=== PATIENT | male | born 1985 | race Caucasian/White ===

== ENCOUNTER 2017-10-09 05:27 | Emergency (ER) | payer BC ==
[~2017-10-09] VITALS: Ht 172.7 cm; Wt 100.0 kg
[~2017-10-09 05:27] MED LIST: ALBUTEROL S2.5 MG/.5 IN; DOXY-CAPS100 MG PO
[2017-10-09] MEDS ORDERED: ALLERGY EYE DRO1 DRO OD (06:10)
[2017-10-09 06:20] VITALS: BP 168/104
== END 2017-10-09 06:25 | disposition home or self-care (01) | DRG 125 ==
LOC: ED 05:27
DX: H10.89 Other conjunctivitis (principal); F17.290 Nicotine dependence, other tobacco product, uncomplicated; J45.909 Unspecified asthma, uncomplicated

== ENCOUNTER 2019-04-24 11:45 | Emergency (ER) | payer OTHER, BC ==
[~2019-04-24] VITALS: Ht 172.7 cm; Wt 125.0 kg
[~2019-04-24 11:45] MED LIST changes: +ALLERGY EYE DRO1 DRO OD
[2019-04-24 12:16] LABS: HEMATOCRIT 43.6 % (39.0-50.0); HEMOGLOBIN 14.3 g/dl (14.0-18.0); IMMATURE GRANULOCYTES 0.5 % (0.0-5.0); MEAN CELL VOLUME 92.4 fL CALC (80.0-100.0); MEAN CORPUSCULAR HGB 30.3 pG CALC (26.0-32.0); MEAN CORPUSCULAR HGB CONC 32.8 g/L CALC (32.0-36.0); NEUT# 5.8 thou/uL (1.82-7.42); RED BLOOD COUNT 4.72 mill/uL (4.70-6.10); RED CELL DISTRI WIDTH 11.4 % (11.5-15.5)
[2019-04-24] MEDS ORDERED: LIPITOR20 M1 PO (12:24)
[2019-04-24] MEDS ORDERED: PROAIR HFA108 MCG/AC IN (12:24)
[2019-04-24] MEDS ORDERED: RANITIDINE150 MG PO (12:25)
[2019-04-24] MEDS ORDERED: LISINOPRIL20 MG PO (12:25)
[2019-04-24 12:32] LABS: ALBUMIN 4.6 g/dL (3.2-5.0); ALKALINE PHOSPHATASE 73 u/l (38-126); ANION GAP 15 (6-22 (CALC)); BUN 22 mg/dL (9-20); BUN/CREATININE RATIO 18 (12-20 (CALC)); CARBON DIOXIDE 27 mmol/l (22-30); CHLORIDE 102 mmol/l (95-108); CREATININE 1.2 mg/dL (0.7-1.3); GFR > 60 ML/MIN (>=60 (CALC)); GFR FOR AFR.AMER. > 60 ML/MIN (>=60 (CALC)); POTASSIUM 4.1 mmol/l (3.5-5.1); SGOT/AST 39 u/l (17-59); SODIUM 140 mmol/l (137-146); TOTAL PROTEIN 7.8 g/dL (6.3-8.2)
[2019-04-24 12:56] LABS: BILIRUBIN, TOTAL 0.7 mg/dL (0.0-1.4)
[2019-04-24 13:20] LABS: MYOGLOBIN 108 ng/mL (0 - 121)
[2019-04-24 13:46] VITALS: BP 140/86
== END 2019-04-24 13:45 | disposition home or self-care (01) | DRG 880 ==
LOC: ED 11:45
PROVIDERS: Emergency Medicine
DX: F41.9 Anxiety disorder, unspecified (principal); I10 Essential (primary) hypertension

== ENCOUNTER 2020-04-21 11:52 | Emergency (ER) | payer BC ==
[~2020-04-21] VITALS: Ht 172.7 cm; Wt 125.0 kg
[~2020-04-21 11:52] MED LIST changes: +LIPITOR20 M1 PO; +LISINOPRIL20 MG PO; +PROAIR HFA108 MCG/AC IN; +RANITIDINE150 MG PO
[2020-04-21] MEDS ORDERED: [UNRECOGNIZED DRUG - OTHER] PO (12:49)
[2020-04-21] MEDS ORDERED: MAGNESIUM500 M1 PO (12:50)
[2020-04-21 13:02] LABS: HEMATOCRIT 44.4 % (39.0-50.0); HEMOGLOBIN 14.8 g/dl (14.0-18.0); IMMATURE GRANULOCYTES 0.4 % (0.0-5.0); MEAN CELL VOLUME 93.1 fL CALC (80.0-100.0); MEAN CORPUSCULAR HGB CONC 33.3 g/dL CAL (32.0-36.0); NEUT# 2.9 thou/uL (1.82-7.42); RED BLOOD COUNT 4.77 mill/uL (4.70-6.10); RED CELL DISTRI WIDTH 11.7 % (11.5-15.5)
[2020-04-21 13:02] LABS: URINE BILIRUBIN - DIPSTICK NEGATIVE (NEGATIVE); URINE BLOOD DIPSTICK NEGATIVE (NEGATIVE); URINE COLOR YELLOW; URINE GLUCOSE - DIPSTICK NEGATIVE (NEGATIVE); URINE KETONE NEGATIVE (NEGATIVE); URINE LEUK ESTERASE NEGATIVE (NEGATIVE); URINE NITRITE - DIPSTICK NEGATIVE (Negative); URINE PH 5.5 (4.5-8.0); URINE PROTEIN - DIPSTICK NEGATIVE (NEG-TRACE); URINE SPECIFIC GRAVITY >=1.030; URINE UROBILINOGEN - DIPSTICK 0.2 E.U./dL (0.2)
[2020-04-21 13:18] LABS: ALBUMIN 4.6 g/dL (3.2-5.0); ALKALINE PHOSPHATASE 73 u/l (38-126); ANION GAP 10 (6-22 (CALC)); BILIRUBIN, TOTAL 0.9 mg/dL (0.0-1.4); BUN 19 mg/dL (9-20); BUN/CREATININE RATIO 15 (12-20 (CALC)); CARBON DIOXIDE 28 mmol/l (22-30); CHLORIDE 105 mmol/l (95-108); CREATININE 1.2 mg/dL (0.7-1.3); GFR > 60 ML/MIN (>=60 (CALC)); GFR FOR AFR.AMER. > 60 ML/MIN (>=60 (CALC)); LIPASE 57 u/l (23-300); POTASSIUM 4.5 mmol/l (3.5-5.1); SGOT/AST 40 u/l (17-59); SODIUM 138 mmol/l (137-146); TOTAL PROTEIN 7.5 g/dL (6.3-8.2)
[2020-04-21] MEDS ORDERED: PROTONIX40 M2 PO (15:27)
[2020-04-21 16:35] VITALS: BP 160/90
== END 2020-04-21 16:06 | disposition home or self-care (01) | DRG 392 ==
LOC: ED 11:52
DX: K29.70 Gastritis, unspecified, without bleeding (principal); I10 Essential (primary) hypertension
CPT/HCPCS: Q9967; S0164

== ENCOUNTER 2021-02-08 | Emergency (ER) | payer BC ==
[~2021-02-08] MED LIST changes: +MAGNESIUM500 M1 PO; +PROTONIX40 M2 PO; +[UNRECOGNIZED DRUG - OTHER] PO
[2021-02-08 19:42] LABS: HEMATOCRIT 45.5 % (39.0-50.0); HEMOGLOBIN 15.1 g/dl (14.0-18.0); IMMATURE GRANULOCYTES 0.3 % (0.0-5.0); MEAN CELL VOLUME 92.7 fL CALC (80.0-100.0); MEAN CORPUSCULAR HGB 30.8 pG CALC (26.0-32.0); MEAN CORPUSCULAR HGB CONC 33.2 g/dL CAL (32.0-36.0); NEUT# 6.58 thou/uL (1.82-7.42); RED BLOOD COUNT 4.91 mill/uL (4.70-6.10); RED CELL DISTRI WIDTH 11.4 % (11.5-15.5)
[2021-02-08 19:43] LABS: URINE BLOOD DIPSTICK NEGATIVE (NEGATIVE); URINE COLOR YELLOW; URINE GLUCOSE - DIPSTICK NEGATIVE (NEGATIVE); URINE KETONE NEGATIVE (NEGATIVE); URINE LEUK ESTERASE NEGATIVE (NEGATIVE); URINE PH 5.5 (4.5-8.0); URINE PROTEIN - DIPSTICK NEGATIVE (NEG-TRACE); URINE SPECIFIC GRAVITY >=1.030; URINE UROBILINOGEN - DIPSTICK 0.2 E.U./dL (0.2)
[2021-02-08 19:44] LABS: URINE BILIRUBIN - DIPSTICK SMALL (NEGATIVE); URINE NITRITE - DIPSTICK NEGATIVE (Negative)
[2021-02-08 19:55] LABS: ALBUMIN 4.8 g/dL (3.2-5.0); ALKALINE PHOSPHATASE 71 u/l (38-126); ANION GAP 16 (6-22 (CALC)); BILIRUBIN, TOTAL 0.9 mg/dL (0.0-1.4); BUN 22 mg/dL (9-20); BUN/CREATININE RATIO 18 (12-20 (CALC)); CARBON DIOXIDE 25 mmol/l (22-30); CHLORIDE 101 mmol/l (95-108); CREATININE 1.2 mg/dL (0.7-1.3); GFR > 60 ML/MIN (>=60 (CALC)); GFR FOR AFR.AMER. > 60 ML/MIN (>=60 (CALC)); POTASSIUM 4.5 mmol/l (3.5-5.1); SGOT/AST 43 u/l (17-59); SODIUM 137 mmol/l (137-146)
== END 2021-02-08 22:15 | disposition home or self-care (01) | DRG 305 ==
PROVIDERS: Emergency Medicine
DX: I10 Essential (primary) hypertension (principal); F17.200 Nicotine dependence, unspecified, uncomplicated

== ENCOUNTER 2021-02-10 | Emergency (ER) | payer BC ==
[2021-02-10] MEDS ORDERED: MAGNESIUM500 M1 PO (14:56)
[2021-02-10 15:01] LABS: HEMOGLOBIN 15.5 g/dl (14.0-18.0); IMMATURE GRANULOCYTES 0.6 % (0.0-5.0); MEAN CELL VOLUME 93.3 fL CALC (80.0-100.0); MEAN CORPUSCULAR HGB 30.8 pG CALC (26.0-32.0); NEUT# 5.3 thou/uL (1.82-7.42); RED BLOOD COUNT 5.04 mill/uL (4.70-6.10); RED CELL DISTRI WIDTH 11.5 % (11.5-15.5)
[2021-02-10 15:12] LABS: ALKALINE PHOSPHATASE 74 u/l (38-126); ANION GAP 13 (6-22 (CALC)); BILIRUBIN, TOTAL 0.7 mg/dL (0.0-1.4); BUN 21 mg/dL (9-20); BUN/CREATININE RATIO 17 (12-20 (CALC)); CARBON DIOXIDE 28 mmol/l (22-30); CHLORIDE 101 mmol/l (95-108); CREATININE 1.2 mg/dL (0.7-1.3); GFR > 60 ML/MIN (>=60 (CALC)); GFR FOR AFR.AMER. > 60 ML/MIN (>=60 (CALC)); POTASSIUM 4.7 mmol/l (3.5-5.1); SGOT/AST 46 u/l (17-59); SODIUM 137 mmol/l (137-146); TOTAL PROTEIN 8.3 g/dL (6.3-8.2)
[2021-02-10 15:43] LABS: TSH, 3RD GENERATION 1.89 uIU/mL (0.47 - 4.68)
[2021-02-10 15:45] LABS: URINE BILIRUBIN - DIPSTICK NEGATIVE (NEGATIVE); URINE BLOOD DIPSTICK NEGATIVE (NEGATIVE); URINE COLOR YELLOW; URINE GLUCOSE - DIPSTICK NEGATIVE (NEGATIVE); URINE KETONE NEGATIVE (NEGATIVE); URINE LEUK ESTERASE NEGATIVE (NEGATIVE); URINE PROTEIN - DIPSTICK NEGATIVE (NEG-TRACE); URINE SPECIFIC GRAVITY >=1.030; URINE UROBILINOGEN - DIPSTICK 0.2 E.U./dL (0.2)
[2021-02-10 15:46] LABS: URINE NITRITE - DIPSTICK NEGATIVE (Negative)
[2021-02-10] MEDS ORDERED: LOPRESSOR25 M1 PO (16:06)
== END 2021-02-10 16:25 | disposition home or self-care (01) | DRG 305 ==
PROVIDERS: Emergency Medicine
DX: I10 Essential (primary) hypertension (principal); J45.909 Unspecified asthma, uncomplicated; F17.200 Nicotine dependence, unspecified, uncomplicated

== ENCOUNTER 2021-06-10 18:56 | Emergency (ER) | payer BC ==
[~2021-06-10 18:56] MED LIST changes: +LOPRESSOR25 M1 PO
[2021-06-10 19:33] VITALS: BP 115/74
[2021-06-10] MEDS ORDERED: ZOFRAN4 MG/TAB PO (20:33)
== END 2021-06-10 20:40 | disposition home or self-care (01) | DRG 179 ==
LOC: ED 18:56
DX: U07.1 COVID-19 (principal); I10 Essential (primary) hypertension; J45.909 Unspecified asthma, uncomplicated; K21.9 Gastro-esophageal reflux disease without esophagitis; F17.200 Nicotine dependence, unspecified, uncomplicated

== ENCOUNTER 2021-06-16 10:41 | Inpatient (IN) | payer BC ==
[~2021-06-16] VITALS: Ht 172.7 cm; Wt 131.5 kg
[~2021-06-16 10:41] MED LIST changes: +ZOFRAN4 MG/TAB PO
--- NOTE | 2021-06-16 10:50 | NUR ---
TO ROOM FOR TRIAGE
--- NOTE | 2021-06-16 10:58 | NUR ---
POC DISCUSSED. CALL [place] IN REACH
[2021-06-16 11:26] LABS: GFR 53 ML/MIN (>=60 (CALC)); GFR FOR AFR.AMER. > 60 ML/MIN (>=60 (CALC))
[2021-06-16 11:30] LABS: HEMATOCRIT 41.1 % (39.0-50.0); HEMOGLOBIN 13.7 g/dl (14.0-18.0); IMMATURE GRANULOCYTES 0.5 % (0.0-5.0); MEAN CELL VOLUME 93.8 fL CALC (80.0-100.0); MEAN CORPUSCULAR HGB 31.3 pG CALC (26.0-32.0); MEAN CORPUSCULAR HGB CONC 33.3 g/dL CAL (32.0-36.0); NEUT# 6.51 thou/uL (1.82-7.42); RED BLOOD COUNT 4.38 mill/uL (4.70-6.10); RED CELL DISTRI WIDTH 11.3 % (11.5-15.5)
[2021-06-16 11:45] LABS: ALBUMIN 4.1 g/dL (3.2-5.0); ALKALINE PHOSPHATASE 55 u/l (38-126); ANION GAP 12 (6-22 (CALC)); BILIRUBIN, TOTAL 0.5 mg/dL (0.0-1.4); BUN 13 mg/dL (9-20); BUN/CREATININE RATIO 9 (12-20 (CALC)); CARBON DIOXIDE 29 mmol/l (22-30); CHLORIDE 96 mmol/l (95-108); CREATININE 1.5 mg/dL (0.7-1.3); GFR 53 ML/MIN (>=60 (CALC)); GFR FOR AFR.AMER. > 60 ML/MIN (>=60 (CALC)); SODIUM 133 mmol/l (137-146); TOTAL PROTEIN 7.7 g/dL (6.3-8.2)
[2021-06-16 11:51] LABS: SGOT/AST 86 u/l (17-59)
[2021-06-16 12:25] LABS: C-REACTIVE PROTEIN 15.6 mg/dL (0-0.9)
--- NOTE | 2021-06-16 12:26 | NUR ---
MD AT BEDSIDE TO DISCUSS RESULTS AND POC.
[2021-06-16 12:52] LABS: URINE BILIRUBIN - DIPSTICK NEGATIVE (NEGATIVE); URINE BLOOD DIPSTICK TRACE-INTACT (NEGATIVE); URINE COLOR YELLOW; URINE GLUCOSE - DIPSTICK NEGATIVE (NEGATIVE); URINE KETONE NEGATIVE (NEGATIVE); URINE LEUK ESTERASE NEGATIVE (NEGATIVE); URINE PROTEIN - DIPSTICK TRACE mg/dL (NEG-TRACE); URINE SPECIFIC GRAVITY <=1.005; URINE UROBILINOGEN - DIPSTICK 0.2 E.U./dL (0.2)
[2021-06-16 12:53] LABS: URINE NITRITE - DIPSTICK NEGATIVE (Negative)
--- NOTE | 2021-06-16 14:20 | NUR ---
REPORT CALLED TO OLAMIDE NARANJO.
--- NOTE | 2021-06-16 15:10 | NUR ---
TO MED SURG VIA WHEELCHAIR BY HELEN MEZA.
--- NOTE | 2021-06-16 15:15 | NUR ---
PT ARRIVED TO FLOOR VIA WHEELCHAIR ACCOMPAINED BY ER STAFF. PT ALERT AND ORIENTED X4. NO APPARENT DISTRESS NOTED. RESPIRATIONS EVEN AND UNLABORED. 02 @ 2L/M VIA NC. NONPRODUCTIVE COUGH NOTED. FULL STACK PYTHON DEVELOPER APPLIED. IV SITE APPEARS HEALTHY, FLUSHED WELL. IV FLUIDS INITIATED. PT ORIENTED TO ROOM AND CALL LIGHT SYSTEM. ADMISSION ASSESSMENT COMPLETE. PT DENIES ANY PAIN OR DISCOMFORT. NO CURRENT WANTS OR NEEDS. CALL LIGHT WITHIN REACH. WILL CONTINUE TO MONITOR.
[2021-06-16 15:50] VITALS: BP 108/71
[2021-06-16 19:00] VITALS: BP 131/79
--- NOTE | 2021-06-16 20:19 | NUR ---
PHYSICAL ASSESMENT COMPLETE. PT CURRENTLY DENIES PAIN OR DISCOMFORT. SCHEDULED MEDICATIONS AND PRN MEDICATION ADMINISTERED, SEE E-MAR. PT DENIES ANY NEEDS AT THIS TIME. PLAN OF CARE REVIEWED, PT DENIES QUESTIONS, VERBALIZES UNDERSTANDING. ITEMS WITHIN REACH, BED LOCKED IN LOW POSITION W/ BEDRAILS UP X2. CALL [place] WITHIN REACH, AGREES TO CALL PRN.
--- NOTE | 2021-06-16 23:55 | NUR ---
PT LAYING IN BED WITH EYES CLOSED, APPEARS TO BE SLEEPING, APPEARS COMFORTABLE AND IN NO DISTRESS. RESPIRATIONS REGULAR AND UNLABORED. ITEMS REMAIN WITHIN REACH, CALL [place] REMAINS WITHIN REACH. BED REMAINS LOCKED AND IN LOW POSITION WITH BEDRAILS UP X2. WILL CONTINUE TO MONITOR.
[2021-06-17] VITALS (7 sets, daily range): BP systolic 96–144; BP diastolic 55–103
--- NOTE | 2021-06-17 04:47 | NUR ---
PT RESTING IN BED, PT DIAPHORETIC AT THIS TIME. [id number]. PTS O2 SATURATION IS 92% ON 2 LITERS OF OXYGEN. RESP EVEN AND UNLABORED. PT VOICES NO NEEDS OR COMPLAINTS AT THIS TIME. CALL LIGHT IN REACH; WILL CONTINUE TO MONITOR.
[2021-06-17 06:04] LABS: HEMATOCRIT 42.2 % (39.0-50.0); HEMOGLOBIN 13.8 g/dl (14.0-18.0); IMMATURE GRANULOCYTES 0.3 % (0.0-5.0); MEAN CELL VOLUME 94.8 fL CALC (80.0-100.0); MEAN CORPUSCULAR HGB CONC 32.7 g/dL CAL (32.0-36.0); NEUT# 5.19 thou/uL (1.82-7.42); RED BLOOD COUNT 4.45 mill/uL (4.70-6.10); RED CELL DISTRI WIDTH 11.4 % (11.5-15.5)
[2021-06-17 06:22] LABS: ALBUMIN 3.8 g/dL (3.2-5.0); ALKALINE PHOSPHATASE 56 u/l (38-126); BILIRUBIN, TOTAL 0.3 mg/dL (0.0-1.4); BUN 16 mg/dL (9-20); BUN/CREATININE RATIO 15 (12-20 (CALC)); CARBON DIOXIDE 27 mmol/l (22-30); CHLORIDE 101 mmol/l (95-108); CREATININE 1.1 mg/dL (0.7-1.3); GFR > 60 ML/MIN (>=60 (CALC)); GFR FOR AFR.AMER. > 60 ML/MIN (>=60 (CALC)); SGOT/AST 79 u/l (17-59)
--- NOTE | 2021-06-17 06:50 | NUR ---
REPORT RECEIVED FROM TREY DERAS
[2021-06-17 07:02] LABS: ANION GAP 17 (6-22 (CALC)); C-REACTIVE PROTEIN 13.8 mg/dL (0-0.9); POTASSIUM 4.9 mmol/l (3.5-5.1); SODIUM 140 mmol/l (137-146)
--- NOTE | 2021-06-17 07:45 | NUR ---
PT RESTING IN SEMI FOWLERS POSITION,A&O X3;VS OBTAINED AND ASSESSMENT COMPLETED, CURRENT BP 144/103 HR 99. D.CARTEE ANRP NOTIFIED AND NEW ORDERS OBTAINED;PT DENIES ANY CURRENT PAIN OR DISCOMFORTS,PAIN SCALE AND REPORTING EDUCATED;RESPIRATIONS EVEN AND UNLABORED ON O2 @ 2L VIA NC, PT IS NOT HOME OXYGEN DEPENDENT;CLEAR/DIMINISHED LUNG SOUNDS WITH NON-PRODUCTIVE COUGH;I.S. PROVIDED AND PT EDUCATED ON USE,ENCOURAGED USE 10X PER HOUR;ABDOMEN SOFT ON PALPATION AND ACTIVE IN ALL 4 QUADRANTS;STRONG PEDAL PULSES;SKIN INTACT;TELE MONITORING IN PLACE;#20G TO LAC INFUSING NS @ 100ML/HR,SITE APPEARS HEALTHY;PT REMAINS IN AIR/CONTACT PRECAUTIONS DUE TO COVID19 DX;PT DENIES ANY ADDITIONAL NEEDS AND IS ENCOURAGED TO CALL FOR ASSISTANCE IF NEEDED;FALL PRECAUTIONS IN PLACE WITH BED IN THE LOWEST POSITION AND CALL LIGHT IN REACH;WILL CONTINUE TO MONITOR
--- NOTE | 2021-06-17 08:14 | NUR ---
Patient is screened for PT consult and no needs are identified at this time
--- NOTE | 2021-06-17 11:32 | NUR ---
AT BEDSIDE DISCUSSING POC WITH PT.
--- NOTE | 2021-06-17 11:35 | NUR ---
PT RESTING IN SEMI FOWLERS POSITION;RESPIRATIONS EVEN AND UNLABORED ON O2 @ 2L VIA NC;PT DENIES ANY CURRENT PAIN OR DISCOMFORTS;TELE MONITORING IN PLACE;IV SITE PATENT RUNNING NS WITH EASE;PT ENCOURAGED TO CALL FOR ASSISTANCE IF NEEDED;FALL PRECAUTIONS REMAIN IN PLACE WITH BED IN THE LOWEST POSITION AND CALL LIGHT IN REACH;WILL CONTINUE TO MONITOR
--- NOTE | 2021-06-17 12:34 | NUR ---
PT TO BE MEDICATED WITH PRN ROBITUSSIN AC PER REQUEST FOR COUGH AT THIS TIME,WILL CONTINUE TO MONITOR FOR EFFECTIVENESS
--- NOTE | 2021-06-17 16:30 | NUR ---
PT RESTING IN SEMI FOWLERS POSITION;RESPIRATIONS EVEN AND UNLABORED ON O2 @ 2L VIA NC;PT DENIES ANY CURRENT PAIN OR NEEDS;IV SITE PATENT INFUSING NS @ 100ML/HR,SITE APPEARS HEALTHY;PT ENOCURAGED TO CALL FOR ASSISTANCE IF NEEDED;CALL LIGHT IN REACH;WILL CONTINUE TO MONITOR
--- NOTE | 2021-06-17 20:56 | NUR ---
PT MEDICATED ORDERS PROVIDE AND ASSESSMENT COMPLETED AT THIS TIME. PT REPORTS FEELING MUCH BETTER. NO S/O DISTRESS NOTED AT THIS TIME. POC DISCUSSED AND PT ENCOUARGED TO CALL NEEDS ARISE. CALL LIGHT AT SIDE.
--- NOTE | 2021-06-18 00:10 | NUR ---
PT WAS SLEEPING I ENTERED THE ROOM. TEMP 97.8 AND OXYGEN SAT 95% SUSTAINING ON 2LNC AT THIS TIME. DENIES ANY OTHER NEEDS, CALL LIGHT IN HAND AND PT ENCOURAGED TO CALL ANY NEEDS ARISE.
--- NOTE | 2021-06-18 02:15 | NUR ---
Pt appears to be sleeping upright in high fowlers position. Lights are off and tv on. Resp appear regular non-labored. Call light w/in reach.
[2021-06-18 04:00] VITALS: BP 118/85
--- NOTE | 2021-06-18 05:24 | NUR ---
IVPUMP CLEARED AT THIS TIME. PT IS SLEEPING AGAIN, LAB AND V/S HAVE BEEN OBTAINED JUST PRIOR TO THIS TIME. NO S/O DISTRESS.
[2021-06-18 06:13] LABS: HEMATOCRIT 41.2 % (39.0-50.0); HEMOGLOBIN 13.1 g/dl (14.0-18.0); IMMATURE GRANULOCYTES 0.8 % (0.0-5.0); MEAN CELL VOLUME 97.2 fL CALC (80.0-100.0); MEAN CORPUSCULAR HGB 30.9 pG CALC (26.0-32.0); MEAN CORPUSCULAR HGB CONC 31.8 g/dL CAL (32.0-36.0); NEUT# 4.12 thou/uL (1.82-7.42); RED BLOOD COUNT 4.24 mill/uL (4.70-6.10); RED CELL DISTRI WIDTH 11.5 % (11.5-15.5)
[2021-06-18 06:19] LABS: ALBUMIN 3.5 g/dL (3.2-5.0); ALKALINE PHOSPHATASE 48 u/l (38-126); ANION GAP 13 (6-22 (CALC)); BILIRUBIN, TOTAL 0.2 mg/dL (0.0-1.4); BUN 21 mg/dL (9-20); BUN/CREATININE RATIO 18 (12-20 (CALC)); CARBON DIOXIDE 25 mmol/l (22-30); CHLORIDE 105 mmol/l (95-108); CREATININE 1.2 mg/dL (0.7-1.3); GFR > 60 ML/MIN (>=60 (CALC)); GFR FOR AFR.AMER. > 60 ML/MIN (>=60 (CALC)); POTASSIUM 4.6 mmol/l (3.5-5.1); SGOT/AST 59 u/l (17-59); SODIUM 139 mmol/l (137-146); TOTAL PROTEIN 6.5 g/dL (6.3-8.2)
--- NOTE | 2021-06-18 07:10 | NUR ---
REPORT RECEIVED FROM TREY CONNER
[2021-06-18 08:39] VITALS: BP 137/71
--- NOTE | 2021-06-18 08:40 | NUR ---
PT RESTING IN SEMI FOWLERS POSITION,A&O X3;VS OBTAINED AND ASSESSMENT COMPLETED;PT DENIES ANY CURRENT PAIN OR DISCOMFORTS,PAIN SCALE AND REPORTING EDUCATED;RESPIRATIONS EVEN AND UNLABORED ON O2 @ 2L VIA NC, O2 SATS 90% AT THIS TIME.OXYGEN INCREASED TO 3L VIA NC;CLEAR/DIMINISHED LUNG SOUNDS NOTED;NON-PRODUCTIVE COUGH AND PT MEDICATED WITH PRN ROBITUSSIN AC PER REQUEST;I.S. AT BEDSIDE AND PT DEMONSTRATED USE.ENCOURAGED USE 10X PER HOUR;ABDOMEN SOFT ON PALPATION AND ACTIVE IN ALL 4 QUADRANTS;STRONG PEDAL PULSES;SKIN INTACT;#20G TO LAC INFUSING NS @ 100ML/HR,SITE APPEARS HEALTHY;PT REMAINS IN AIR/CONTACT PRECAUTIONS DUE TO COVID19 DX;PT ENCOURAGED TO CALL FOR ASSISTANCE IF NEEDED;FALL PRECAUTIONS IN PLACE WITH CALL LIGHT IN REACH;WILL CONTINUE TO MONITOR
--- NOTE | 2021-06-18 10:40 | NUR ---
PT OXYGEN SAT 96% ON 02 @ 3L VIA NC, OXYGEN TITRATED TO 2L AT THIS TIME;WILL CONTINUE TO MONITOR
--- NOTE | 2021-06-18 11:20 | NUR ---
PT RESTING IN SEMI FOWLERS POSITION TALKING ON THE PHONE;RESPIRATIONS EVEN AND UNLABORED ON O2 @ 2L VIA NC;PT DENIES ANY CURRENT PAIN OR NEEDS;IV SITE PATENT INFUSING NS WITH EASE PER ORDER;PT ENCOURAGED TO CALL FOR ASSISTANCE IF NEEDED;CALL LIGHT IN REACH;WILL CONTINUE TO MONITOR
--- NOTE | 2021-06-18 11:29 | NUR ---
AT BEDSIDE DISCUSSING POC WITH PT.
[2021-06-18 15:10] VITALS: BP 126/53
--- NOTE | 2021-06-18 15:35 | NUR ---
PT RESTING IN SEMI FOWLERS POSITION WATCHING TV;RESPIRATIONS EVEN AND UNLABORED ON O2 @ 2L VIA NC, O2 SATS 95%;OXYGEN TITRATED TO 1L AT THIS TIME;PT DENIES ANY CURRENT PAIN OR DISCOMFORTS;IV SITE PATENT INFUSING NS WITH EASE PER ORDER;PT DENIES ANY ADDITIONAL NEEDS;ENCOURAGED TO CALL FOR ASSISTANCE IF NEEDED;CALL LIGHT IN REACH;WILL CONTINUE TO MONITOR
[2021-06-18 19:00] VITALS: BP 135/88
--- NOTE | 2021-06-18 22:08 | NUR ---
PT MEDICATED ORDERS PROVIDE AND ASSESSMENT COMPLETED AT THIS TIME. PT IN HIGH FOWLERS, DENIES SOB EXCEPT ON EXERTION. DEMONSTRATED 2000/BREATH ON IS, FURTHER EDUCATION PROVIDED ON ITS USE. PT REPORTS HAVING BEEN AMBULATING AROUND THE ROOM TO HELP BUILD LUNG STAMINA, DISCUSSED SAFETY AND PRO-ACTIVE ACTIVITIES, VERBALIZED UNDERSTANDING. I ENCOURAGED HIM TO CALL NEEDS ARISE AND OFFERED SNACK OR DRINK, AGREED TO SNACK.
--- NOTE | 2021-06-18 23:15 | NUR ---
SNACK PROVIDED AT THIS TIME PER REQUEST.
[2021-06-19 04:30] VITALS: BP 153/89
--- NOTE | 2021-06-19 04:38 | NUR ---
PT SLEEPING, CONSULTING SERVICES PROJECT MANAGER AND LAB WERE JUST IN WITH PT PRIOR TO MY ENTERING THE ROOM. IVF REPLENISHED. HE OPENED HIS EYES AND PROMPTLY RETURNED TO SLEEP. NO S/O DISTRESS NOTED.
[2021-06-19 05:14] LABS: HEMATOCRIT 40.5 % (39.0-50.0); HEMOGLOBIN 12.8 g/dl (14.0-18.0); IMMATURE GRANULOCYTES 1.4 % (0.0-5.0); MEAN CELL VOLUME 96.7 fL CALC (80.0-100.0); MEAN CORPUSCULAR HGB 30.5 pG CALC (26.0-32.0); MEAN CORPUSCULAR HGB CONC 31.6 g/dL CAL (32.0-36.0); NEUT# 3.44 thou/uL (1.82-7.42); RED BLOOD COUNT 4.19 mill/uL (4.70-6.10); RED CELL DISTRI WIDTH 11.3 % (11.5-15.5)
[2021-06-19 05:40] LABS: ALBUMIN 3.4 g/dL (3.2-5.0); ALKALINE PHOSPHATASE 45 u/l (38-126); BUN 19 mg/dL (9-20); BUN/CREATININE RATIO 18 (12-20 (CALC)); C-REACTIVE PROTEIN 2.2 mg/dL (0-0.9); CARBON DIOXIDE 27 mmol/l (22-30); CHLORIDE 105 mmol/l (95-108); CREATININE 1.1 mg/dL (0.7-1.3); GFR > 60 ML/MIN (>=60 (CALC)); GFR FOR AFR.AMER. > 60 ML/MIN (>=60 (CALC)); SGOT/AST 60 u/l (17-59); SODIUM 140 mmol/l (137-146); TOTAL PROTEIN 6.3 g/dL (6.3-8.2)
[2021-06-19 06:01] LABS: ANION GAP 13 (6-22 (CALC)); BILIRUBIN, TOTAL 0.3 mg/dL (0.0-1.4); POTASSIUM 5.3 mmol/l (3.5-5.1)
[2021-06-19 07:15] VITALS: BP 148/82
--- NOTE | 2021-06-19 07:15 | NUR ---
PATIENT ALERT AND ORIENTED AND SITTING UP IN BED AT THIS TIME. PATIENT DENEIS ANY PAIN OR NEEDS. GYPSUM ROOFER DONE SEE INTERVENTIONS. PATIENT EXHIBITS DRY COUGH AND DENIES SHORTNESS OF BREATH. SIDERAILS ARE UP CALL LIGHT WITHIN [facility].
--- NOTE | 2021-06-19 11:33 | NUR ---
PATIENT LAYING IN BED AT THIS TIME. DENEIS ANY PAIN OR NEEDS. O2 IS ON AT 2 LITERS AT THIS TIME. SIDERAILS ARE UP CALL LIGHT WITHIN REACH
[2021-06-19 16:00] VITALS: BP 152/90
--- NOTE | 2021-06-19 16:08 | NUR ---
PATIENT LAYING IN BED WATCHING TV. YULY PAIN OR NEEDS CURRENTLY O2 IS OFF AT THIS TIME AND PATIENT DENEIS ANY SHORTNESS OF BREATH. SIDERAILS ARE UP X 2 CALL LIGHT WITHIN REACH.
--- NOTE | 2021-06-19 21:17 | NUR ---
ALERT AND ORIENTED. ABLE TO MAKE NEEDS KNOWN. ASSESSMENT COMPLETED. IV SITE TO THE LEFT AC PATENT. PRESCRIBED MEDICATION GIVEN WITHOUT DIFFICULTY. PATIENT TOLERATED WELL. NO COMPLAINTS OF PAIN OR DISCOMFORT VOICED AT THIS TIME. BED IN LOWEST POSITION. CALL LIGHT AND BELONGINGS WITHIN REACH.
--- NOTE | 2021-06-19 23:15 | NUR ---
PATIENT OBSERVED SLEEPING IN BED WITH EYES CLOSED. NO SIGNS OF DISTRESS NOTED AT THIS TIME.
--- NOTE | 2021-06-20 00:35 | NUR ---
PATIENT OBSERVED SLEEPING IN BED USING ABDOMINAL MUSCLES. NO DISTRESS NOTED.
--- NOTE | 2021-06-20 01:15 | NUR ---
HUNG A NEW BAG OF IV FLUIDS PER ORDERS. PATIENT DENIES NEEDING ANYTHING AT THIS TIME. NO SIGNS OF DISTRESS. USES URINAL AND RESTROOM IN BEDROOM NEEDED WITH NO ISSUES.
[2021-06-20 03:45] VITALS: BP 136/98
[2021-06-20 06:58] LABS: HEMATOCRIT 39.1 % (39.0-50.0); HEMOGLOBIN 12.8 g/dl (14.0-18.0); IMMATURE GRANULOCYTES 1.8 % (0.0-5.0); MEAN CELL VOLUME 95.1 fL CALC (80.0-100.0); MEAN CORPUSCULAR HGB 31.1 pG CALC (26.0-32.0); MEAN CORPUSCULAR HGB CONC 32.7 g/dL CAL (32.0-36.0); NEUT# 5.82 thou/uL (1.82-7.42); RED BLOOD COUNT 4.11 mill/uL (4.70-6.10); RED CELL DISTRI WIDTH 11.2 % (11.5-15.5)
[2021-06-20 07:19] LABS: ALBUMIN 3.2 g/dL (3.2-5.0); ALKALINE PHOSPHATASE 50 u/l (38-126); ANION GAP 12 (6-22 (CALC)); BILIRUBIN, TOTAL 0.3 mg/dL (0.0-1.4); BUN 16 mg/dL (9-20); BUN/CREATININE RATIO 15 (12-20 (CALC)); CARBON DIOXIDE 28 mmol/l (22-30); CHLORIDE 102 mmol/l (95-108); CREATININE 1.1 mg/dL (0.7-1.3); GFR > 60 ML/MIN (>=60 (CALC)); GFR FOR AFR.AMER. > 60 ML/MIN (>=60 (CALC)); POTASSIUM 4.9 mmol/l (3.5-5.1); SGOT/AST 79 u/l (17-59); SODIUM 137 mmol/l (137-146)
[2021-06-20 07:30] VITALS: BP 139/96
--- NOTE | 2021-06-20 07:30 | NUR ---
PATIENT SITTING UP IN BED AT THIS TIME. PATIENT STATES HE HAS HAD HIS 02 OFF ALL NIGHT SPO2 IS 95% ON ROOM AIR. PATIENT EXHIBITS NO COUGHING AT THIS TIME. LUNG RUBALCAVA ARE CLEAR IN UPPPER AND MIDDLE AND SLIGHTLY DIMINISHED IN LOWER BASES. PATIENT DENIES ANY PAIN. SIDERAILS ARE UP X 2 CALL LIGHT WITHIN REACH. DIRECTOR PERIOPERATIVE DONE SEE INTERVENTIONS.
--- NOTE | 2021-06-20 12:02 | NUR ---
SIX MIN. WALK TEST DONE AT THIS TIME. PATIENT HAS HAD O2 OFF SINCE PRIOR TO SHIFT START AT 0700. PATIENT RESTING SPO2 IS 94%. WALKED PATIENT AROUND IN ROOM FOR 5 MINUTES WITHOUT O2 AND SPO2 DROPPED TO 91%. PATIENT SAT BACK DOWN IN CHAIR AND FINAL RESTING SPO2 IS NOW: 94% ALL FINDINGS REPORTED TO DR. HOANG AND COOPER PARKER.
[2021-06-20] MEDS ORDERED: DEXAMETHASON6 MG PO (12:15)
[2021-06-20] MEDS ORDERED: ZITHROMAX250 MG PO (12:16)
[2021-06-20] MEDS ORDERED: ASPIRIN REGULA325 M1 PO (12:17)
--- NOTE | 2021-06-20 13:40 | NUR ---
PATIENT D/C AT THIS TIME PATIENT VERBALIZES UNDERSTANDING OF D/C INSTRUCTIONS AT THIS TIME.
--- NOTE | 2021-06-20 15:35 | NUR ---
Discharge instructions given. Patient verbalizes understanding of same. Discharged in stable condition via Wheelchair to Home with *Other. All belongings sent with pt.PATIENT TOOK ALL PERSONAL BELONGING WITH HIM AT D/C. PATIENT TAKEN DOWN BY WHEELCHAIR.
== END 2021-06-20 15:35 | disposition home or self-care (01) | DRG 177 ==
LOC: ED 10:41 → ED-I 12:17 → ED 12:43 → MS2 12:44
PROVIDERS: Family Medicine; Nurse Practitioner; ADMIT Hospitalist; ATTEND Hospitalist
PROC: XW033E5 Introduction of Remdesivir Anti-infective into Peripheral Vein, Percutaneous Approach, New Technology Group 5 (ICD-10-PCS; principal; 2021-06-16)
DX: U07.1 COVID-19 (principal); J12.82 Pneumonia due to coronavirus disease 2019; Z68.41 Body mass index [BMI] 40.0-44.9, adult; N17.9 Acute kidney failure, unspecified; R09.02 Hypoxemia; I10 Essential (primary) hypertension; J45.909 Unspecified asthma, uncomplicated; K21.9 Gastro-esophageal reflux disease without esophagitis; E66.01 Morbid (severe) obesity due to excess calories; F17.200 Nicotine dependence, unspecified, uncomplicated
CPT/HCPCS: Q9967

== ENCOUNTER 2022-03-26 09:42 | Emergency (ER) | payer BC ==
[~2022-03-26] VITALS: Ht 172.7 cm; Wt 125.0 kg
[2022-03-26] VITALS (12 sets, daily range): BP systolic 126–171; BP diastolic 80–121
[~2022-03-26 09:42] MED LIST changes: +ASPIRIN REGULA325 M1 PO; +DEXAMETHASON6 MG PO; +ZITHROMAX250 MG PO
[2022-03-26 10:28] LABS: HEMATOCRIT 43.7 % (39.0-50.0); HEMOGLOBIN 14.7 g/dl (14.0-18.0); IMMATURE GRANULOCYTES 0.2 % (0.0-5.0); MEAN CELL VOLUME 93.2 fL CALC (80.0-100.0); MEAN CORPUSCULAR HGB 31.3 pG CALC (26.0-32.0); MEAN CORPUSCULAR HGB CONC 33.6 g/dL CAL (32.0-36.0); NEUT# 5.62 thou/uL (1.82-7.42); RED BLOOD COUNT 4.69 mill/uL (4.70-6.10); RED CELL DISTRI WIDTH 11.6 % (11.5-15.5)
[2022-03-26 10:40] LABS: ANION GAP 13 (6-22 (CALC)); BUN 20 mg/dL (9-20); BUN/CREATININE RATIO 18 (12-20 (CALC)); CARBON DIOXIDE 26 mmol/l (22-30); CHLORIDE 105 mmol/l (95-108); CREATININE 1.1 mg/dL (0.7-1.3); GFR > 60 ML/MIN (>=60 (CALC)); GFR FOR AFR.AMER. > 60 ML/MIN (>=60 (CALC)); POTASSIUM 4.2 mmol/l (3.5-5.1); SGOT/AST 39 u/l (17-59); SODIUM 140 mmol/l (137-146)
[2022-03-26 10:43] LABS: ALBUMIN 4.4 g/dL (3.2-5.0); ALKALINE PHOSPHATASE 78 u/l (38-126); BILIRUBIN, TOTAL 0.5 mg/dL (0.0-1.4); TOTAL PROTEIN 7.4 g/dL (6.3-8.2)
[2022-03-26] MEDS ORDERED: LISINOPRIL20 M1 PO (14:22)
== END 2022-03-26 14:35 | disposition home or self-care (01) | DRG 313 ==
LOC: ED 09:42
PROVIDERS: Family Medicine
DX: R07.9 Chest pain, unspecified (principal); I10 Essential (primary) hypertension; J45.909 Unspecified asthma, uncomplicated; E66.9 Obesity, unspecified; K21.9 Gastro-esophageal reflux disease without esophagitis

== ENCOUNTER 2022-12-30 11:35 | Emergency (ER) | payer OTHER, BC ==
[~2022-12-30] VITALS: Ht 172.7 cm; Wt 142.9 kg
[2022-12-30] VITALS (10 sets, daily range): BP systolic 122–151; BP diastolic 77–97
[~2022-12-30 11:35] MED LIST changes: +LISINOPRIL20 M1 PO
[2022-12-30] MEDS ORDERED: PREDNISONE10 MG PO (15:18)
[2022-12-30] MEDS ORDERED: METHOCARBAMOL500 MG PO (15:18)
== END 2022-12-30 16:07 | disposition home or self-care (01) | DRG 563 ==
LOC: ED 11:35
DX: S39.011A Strain of muscle, fascia and tendon of abdomen, initial encounter (principal); X50.9XXA Other and unspecified overexertion or strenuous movements or postures, initial encounter